=== PATIENT | female | born 1970 | race Caucasian/White ===

== ENCOUNTER 2016-10-20 17:53 | Emergency (ER) | payer MEDICAID ==
[~2016-10-20] VITALS: Ht 157.5 cm; Wt 61.2 kg
[2016-10-20 17:57] VITALS: BP_SYST 147
[2016-10-20] MEDS ORDERED: NACL 0.9% 1,000 ML IV ONE (18:06)
[2016-10-20] MEDS ORDERED: LORazepam 2 MG/ML VIAL (FOR ER USE) IVP ONE (18:15)
[2016-10-20 18:34] LABS: BASOPHILS # (AUTO) 0.1 K/uL (0.0-0.2); BASOPHILS % (AUTO) 0.5 % (0.0-2.0); EOSINOPHILS # (AUTO) 0.2 K/uL (0.0-0.4); EOSINOPHILS % (AUTO) 1.4 % (0.0-4.0); HEMATOCRIT 45.3 % (36-48); HEMOGLOBIN 15.3 g/dL (12.0-16.0); LYMPHOCYTES # (AUTO) 3.2 K/uL (1.0-5.5); LYMPHOCYTES % (AUTO) 28.6 % (20.5-51.5); MEAN CORPUSCULAR HEMOGLOBIN 30 pg (27-31); MEAN CORPUSCULAR HGB CONC 34 % (32-36); MEAN CORPUSCULAR VOLUME 89 fL (79.0-98.0); MONOCYTES # (AUTO) 0.7 K/uL (0.0-1.0); MONOCYTES % (AUTO) 6.4 % (1.7-9.3); NEUTROPHILS # (AUTO) 6.8 K/uL (1.8-7.7); NEUTROPHILS % (AUTO) 63.1 % (40.0-70.0); PLATELET COUNT (AUTO) 440 K/uL (130-430); RED BLOOD CELL COUNT(AUTO) 5.11 MIL/uL (4.2-6.2); RED CELL DISTRIBUTION WIDTH 11.7 % (9.0-15.0)
[2016-10-20 18:46] LABS: CALCIUM 9.9 mg/dL (8.4-11.0); CREATININE 0.88 mg/dL (0.55-1.30); POTASSIUM 3.2 mmol/L (3.5-5.1)
[2016-10-20 18:51] LABS: ALBUMIN 4.7 g/dL (3.4-4.8); TOTAL BILIRUBIN 0.7 mg/dL (0.0-1.0); TOTAL PROTEIN, SERUM 8.8 g/dL (6.4-8.3)
[2016-10-20 18:51] LABS: BILIRUBIN,URINE NEGATIVE (NEGATIVE); BLOOD, URINE NEGATIVE (NEGATIVE); CLARITY/URINE CLOUDY (CLEAR); COLOR,URINE YELLOW (YELLOW); GLUCOSE,URINE 3+ (NEGATIVE); KETONES,URINE 1+ (NEGATIVE); LEUKOCYTE ESTERASE ,URINE TRACE (NEGATIVE); NITRITE, URINE NEGATIVE (NEGATIVE); PH,URINE 7.5 (5.0-8.0); PROTEIN URINE TRACE (NEGATIVE); UROBILINOGEN,URINE 0.2 (0.2-1.0)
[2016-10-20] MEDS ORDERED: KETOROLAC TROMETHAMINE 30 MG VIAL IVP ONE (19:00)
[2016-10-20] MEDS ORDERED: DIPHENHYDRAMINE INJ 50 MG/ML VIAL IVP ONE (19:00)
[2016-10-20 19:12] LABS: RBC,URINE NONE SEEN /HPF (0-3)
[2016-10-20 19:13] LABS: BACTERIA,URINE MODERATE /HPF (None Seen); MUCUS,URINE 1+ /LPF (None Seen)
[2016-10-20 19:50] VITALS: BP_SYST 139
== END 2016-10-20 19:50 | disposition home or self-care (01) ==
LOC: SED 17:53
DX: F45.8 Other somatoform disorders (principal); R10.33 Periumbilical pain; E11.9 Type 2 diabetes mellitus without complications; Z88.5 Allergy status to narcotic agent; Z88.6 Allergy status to analgesic agent; Z90.49 Acquired absence of other specified parts of digestive tract
CPT/HCPCS: 36415; 74176; 80053; 81000; 81025; 83690; 85025; 87086; 96361; 96374; 96375; 99285; J1200; J1885; J2060; J7030

== ENCOUNTER 2017-06-25 18:59 | Emergency (ER) | payer SELFPAY ==
[~2017-06-25] VITALS: Ht 157.5 cm; Wt 59.0 kg
[2017-06-25 19:07] VITALS: BP_SYST 124
--- NOTE | 2017-06-25 19:28 | NUR ---
Patient to ER bed 03 to gown for evaluation. Side rails up. Report given to MARTITA Loja
--- NOTE | 2017-06-25 19:45 | NUR ---
Pt states that she has had flu like symptoms for a couple days including congestion, body aches, malaise, and headache. Will continue to monitor. No distress noted. AAOx4.
--- NOTE | 2017-06-25 20:00 | NUR ---
NAYA Vicente at bedside examining patient.
[2017-06-25 20:08] LABS: STREPTOCOCCUS A SCREEN (RAPID) NEGATIVE (NEGATIVE)
[2017-06-25 20:20] VITALS: BP_SYST 124
--- NOTE | 2017-06-25 20:20 | NUR ---
Patient given written and verbal discharge instructions and verbalizes understanding. ER MD discussed with patient the results and treatment provided. Patient in stable condition. ID arm band removed. Rx of promethezine and motrin given. Patient educated on pain management and to follow up with PMD. Pain Scale 2/10. Opportunity for questions provided and answered. Medication side effect fact sheet provided.
== END 2017-06-25 20:20 | disposition home or self-care (01) ==
LOC: SED 18:59
DX: J10.1 Influenza due to other identified influenza virus with other respiratory manifestations (principal); E11.65 Type 2 diabetes mellitus with hyperglycemia; Z88.5 Allergy status to narcotic agent; Z88.8 Allergy status to other drugs, medicaments and biological substances
CPT/HCPCS: 36415; 71045; 82962; 86403; 86710; 87081; 99285

== ENCOUNTER 2018-03-14 11:23 | Emergency (ER) | payer MEDICAID ==
[~2018-03-14] VITALS: Ht 157.5 cm; Wt 61.2 kg
[2018-03-14 11:25] VITALS: BP_SYST 121
[2018-03-14] MEDS ORDERED: NACL 0.9% 1,000 ML IV ONE (12:16)
[2018-03-14 12:26] LABS: BILIRUBIN,URINE NEGATIVE (NEGATIVE); BLOOD, URINE NEGATIVE (NEGATIVE); CLARITY/URINE CLEAR (CLEAR); COLOR,URINE YELLOW (YELLOW); GLUCOSE,URINE 3+ (NEGATIVE); KETONES,URINE TRACE (NEGATIVE); LEUKOCYTE ESTERASE ,URINE NEGATIVE (NEGATIVE); NITRITE, URINE NEGATIVE (NEGATIVE); PH,URINE 5.5 (5.0-8.0); PROTEIN URINE NEGATIVE (NEGATIVE); UROBILINOGEN,URINE 0.2 (0.2-1.0)
[2018-03-14] MEDS ORDERED: DIPHENHYDRAMINE INJ 50 MG/ML VIAL IVP ONE (12:30)
[2018-03-14] MEDS ORDERED: NS 1000 ML IV.SOLN IV ONE (12:30)
[2018-03-14] MEDS ORDERED: PROMETHAZINE HCL 25 MG/ML AMP IVP ONE (12:30)
[2018-03-14 12:38] LABS: BASOPHILS # (AUTO) 0.1 K/uL (0.0-0.2); BASOPHILS % (AUTO) 0.7 % (0.0-2.0); EOSINOPHILS # (AUTO) 0.3 K/uL (0.0-0.4); HEMATOCRIT 45.6 % (36-48); HEMOGLOBIN 15.1 g/dL (12.0-16.0); LYMPHOCYTES # (AUTO) 2.6 K/uL (1.0-5.5); LYMPHOCYTES % (AUTO) 25.5 % (20.5-51.5); MEAN CORPUSCULAR HEMOGLOBIN 30 pg (27-31); MEAN CORPUSCULAR HGB CONC 33 % (32-36); MEAN CORPUSCULAR VOLUME 91 fL (79.0-98.0); MONOCYTES # (AUTO) 0.6 K/uL (0.0-1.0); MONOCYTES % (AUTO) 5.9 % (1.7-9.3); NEUTROPHILS # (AUTO) 6.5 K/uL (1.8-7.7); NEUTROPHILS % (AUTO) 64.9 % (40.0-70.0); PLATELET COUNT (AUTO) 433 K/uL (130-430); RED BLOOD CELL COUNT(AUTO) 5.01 MIL/uL (4.2-6.2); RED CELL DISTRIBUTION WIDTH 11.6 % (9.0-15.0); WHITE BLOOD COUNT (AUTO) 10.1 K/uL (4.8-10.8)
[2018-03-14 12:54] LABS: BACTERIA,URINE RARE /HPF (None Seen); RBC,URINE 0-3 /HPF (0-3); WBC,URINE NONE SEEN /HPF (0-3)
[2018-03-14 12:57] LABS: PROTHROMBIN TIME 9.6 SECS (9.5-12.5)
[2018-03-14 13:08] LABS: ALBUMIN 3.8 g/dL (3.4-4.8); CREATININE 0.8 mg/dL (0.55-1.30); TOTAL BILIRUBIN 0.4 mg/dL (0.0-1.0)
[2018-03-14 14:20] VITALS: BP_SYST 121
== END 2018-03-14 14:20 | disposition home or self-care (01) ==
LOC: SED 11:23
DX: K57.90 Diverticulosis of intestine, part unspecified, without perforation or abscess without bleeding (principal); M54.5 Low back pain; E11.9 Type 2 diabetes mellitus without complications; F17.200 Nicotine dependence, unspecified, uncomplicated; Z90.49 Acquired absence of other specified parts of digestive tract; Z88.5 Allergy status to narcotic agent; Z88.6 Allergy status to analgesic agent; Z88.8 Allergy status to other drugs, medicaments and biological substances
CPT/HCPCS: 36415; 71045; 74176; 80053; 81000; 81025; 82150; 82962; 83605; 83690; 84484; 85025; 85610; 85730; 87040; 93005; 96374; 96375; 99285; J1200; J2550; J7030

== ENCOUNTER 2018-03-15 16:29 | Emergency (ER) | payer MEDICAID ==
[~2018-03-15] VITALS: Ht 157.5 cm; Wt 61.2 kg
[2018-03-15 16:33] VITALS: BP_SYST 143
--- NOTE | 2018-03-15 16:45 | NUR ---
Patient to ER bed 5 to gown for evaluation. Side rails up.
--- NOTE | 2018-03-15 17:00 | NUR ---
Patient arrived via POV, daughter at bedside. Patient alert and oriented, c/c of lower back pain, feeling like a kidney stone. Patient rates pain 10/10, sharp to lower back. Patient has notable pain response. Patient denies nausea, vomiting, and diarrhea.
--- NOTE | 2018-03-15 17:02 | NUR ---
NAYA Rosales NP at bedside examining patient.
[2018-03-15] MEDS ORDERED: KETOROLAC TROMETHAMINE 60 MG/2 ML VIAL IM ONE (17:15)
[2018-03-15 17:24] LABS: BILIRUBIN,URINE NEGATIVE (NEGATIVE); BLOOD, URINE NEGATIVE (NEGATIVE); CLARITY/URINE CLEAR (CLEAR); COLOR,URINE YELLOW (YELLOW); GLUCOSE,URINE 3+ (NEGATIVE); KETONES,URINE NEGATIVE (NEGATIVE); LEUKOCYTE ESTERASE ,URINE NEGATIVE (NEGATIVE); NITRITE, URINE NEGATIVE (NEGATIVE); PROTEIN URINE NEGATIVE (NEGATIVE); UROBILINOGEN,URINE 0.2 (0.2-1.0)
[2018-03-15 17:28] LABS: BACTERIA,URINE FEW /HPF (None Seen); RBC,URINE 0-3 /HPF (0-3); WBC,URINE 0-3 /HPF (0-3); YEAST,URINE Few /HPF (None Seen)
--- NOTE | 2018-03-15 17:35 | NUR ---
US at bedside for exam.
[2018-03-15 17:39] LABS: BASOPHILS # (AUTO) 0.1 K/uL (0.0-0.2); BASOPHILS % (AUTO) 0.6 % (0.0-2.0); EOSINOPHILS # (AUTO) 0.4 K/uL (0.0-0.4); EOSINOPHILS % (AUTO) 4.1 % (0.0-4.0); HEMATOCRIT 43.1 % (36-48); HEMOGLOBIN 14.6 g/dL (12.0-16.0); LYMPHOCYTES # (AUTO) 3.6 K/uL (1.0-5.5); LYMPHOCYTES % (AUTO) 37.4 % (20.5-51.5); MEAN CORPUSCULAR HEMOGLOBIN 30 pg (27-31); MEAN CORPUSCULAR HGB CONC 34 % (32-36); MEAN CORPUSCULAR VOLUME 90 fL (79.0-98.0); MONOCYTES # (AUTO) 0.6 K/uL (0.0-1.0); NEUTROPHILS % (AUTO) 51.9 % (40.0-70.0); PLATELET COUNT (AUTO) 396 K/uL (130-430); RED BLOOD CELL COUNT(AUTO) 4.81 MIL/uL (4.2-6.2); RED CELL DISTRIBUTION WIDTH 11.6 % (9.0-15.0); WHITE BLOOD COUNT (AUTO) 9.7 K/uL (4.8-10.8)
[2018-03-15 17:50] LABS: ALBUMIN 3.4 g/dL (3.4-4.8); CALCIUM 8.6 mg/dL (8.4-11.0); CREATININE 0.74 mg/dL (0.55-1.30); POTASSIUM 3.7 mmol/L (3.5-5.1); TOTAL BILIRUBIN 0.3 mg/dL (0.0-1.0)
[2018-03-15] MEDS ORDERED: fentaNYL CITRATE/PF 100 MCG/2 ML AMP IM ONE (18:15)
--- NOTE | 2018-03-15 19:14 | NUR ---
Patient given written and verbal discharge instructions and verbalizes understanding. ER MD discussed with patient the results and treatment provided. Patient in stable condition. ID arm band removed. Rx of Mobile, Flexeril given. Patient educated on pain management and to follow up with PMD. Pain Scale 2/10. Opportunity for questions provided and answered.
[2018-03-15 19:21] VITALS: BP_SYST 121
== END 2018-03-15 19:21 | disposition home or self-care (01) ==
LOC: SED 16:29
DX: R10.9 Unspecified abdominal pain (principal); E11.9 Type 2 diabetes mellitus without complications; R03.0 Elevated blood-pressure reading, without diagnosis of hypertension; Z90.49 Acquired absence of other specified parts of digestive tract; Z88.1 Allergy status to other antibiotic agents; Z88.5 Allergy status to narcotic agent; Z88.6 Allergy status to analgesic agent
CPT/HCPCS: 36415; 76700; 80053; 81000; 81025; 83690; 85025; 96372; 99285; J1885; J3010

== ENCOUNTER 2018-04-10 11:12 | Emergency (ER) | payer MEDICAID ==
[~2018-04-10] VITALS: Ht 157.5 cm; Wt 63.5 kg
[2018-04-10] MEDS ORDERED: NACL 0.9% 1,000 ML IV ONE (11:15)
[2018-04-10 11:22] VITALS: BP_SYST 135
--- NOTE | 2018-04-10 11:25 | NUR ---
Note maddison in ED - 04/10/18 at 1313 by [email or web address] patient is AOx4 arriving from home with generalized ache x 3 days. she has a medical hx of DM2 that she doesn't treat with anything. no other complaints or injury at this time.
--- NOTE | 2018-04-10 11:26 | NUR ---
Pt placed in bed 4
--- NOTE | 2018-04-10 11:27 | NUR ---
patient is AOx4 arriving from home with generalized ache x 3 days. she has a medical hx of DM2 that she doesn't treat with anything. no other complaints or injury at this time. denies drugs, etoh or smoking at this time.
--- NOTE | 2018-04-10 11:31 | NUR ---
ER at bedside examining patient.
[2018-04-10 11:45] LABS: EOSINOPHILS # (AUTO) 0.4 K/uL (0.0-0.4); EOSINOPHILS % (AUTO) 3.1 % (0.0-4.0); HEMATOCRIT 42.3 % (36-48); HEMOGLOBIN 14.7 g/dL (12.0-16.0); LYMPHOCYTES # (AUTO) 1.6 K/uL (1.0-5.5); MEAN CORPUSCULAR HEMOGLOBIN 31 pg (27-31); MEAN CORPUSCULAR HGB CONC 35 % (32-36); MEAN CORPUSCULAR VOLUME 88 fL (79.0-98.0); MONOCYTES # (AUTO) 0.5 K/uL (0.0-1.0); MONOCYTES % (AUTO) 4.4 % (1.7-9.3); PLATELET COUNT (AUTO) 418 K/uL (130-430); RED BLOOD CELL COUNT(AUTO) 4.83 MIL/uL (4.2-6.2); RED CELL DISTRIBUTION WIDTH 11.8 % (9.0-15.0); WHITE BLOOD COUNT (AUTO) 11.8 K/uL (4.8-10.8)
[2018-04-10 11:46] LABS: BASOPHILS % (AUTO) 0.3 % (0.0-2.0); NEUTROPHILS % (AUTO) 78.2 % (40.0-70.0)
[2018-04-10 11:47] LABS: NEUTROPHILS # (AUTO) 9.3 K/uL (1.8-7.7)
[2018-04-10 12:00] LABS: CALCIUM 8.8 mg/dL (8.4-11.0); CREATININE 0.59 mg/dL (0.55-1.30); INR 0.9 (0.8-1.2); POTASSIUM 3.9 mmol/L (3.5-5.1); PROTHROMBIN TIME 9.7 SECS (9.5-12.5)
[2018-04-10] MEDS ORDERED: ATROPINE SULFATE 0.4 MG/ML VIAL IVP ONE (12:00)
[2018-04-10 12:05] LABS: ALBUMIN 3.7 g/dL (3.4-4.8); TOTAL BILIRUBIN 0.5 mg/dL (0.0-1.0)
--- NOTE | 2018-04-10 12:30 | NUR ---
patient resting with IV fluids running
[2018-04-10 12:44] LABS: BILIRUBIN,URINE NEGATIVE (NEGATIVE); CLARITY/URINE HAZY (CLEAR); COLOR,URINE YELLOW (YELLOW); GLUCOSE,URINE 3+ (NEGATIVE); KETONES,URINE 1+ (NEGATIVE); LEUKOCYTE ESTERASE ,URINE NEGATIVE (NEGATIVE); NITRITE, URINE NEGATIVE (NEGATIVE); PROTEIN URINE NEGATIVE (NEGATIVE); UROBILINOGEN,URINE 0.2 (0.2-1.0)
[2018-04-10 12:52] LABS: BLOOD, URINE TRACE (NEGATIVE)
[2018-04-10 12:55] LABS: BARBITURATE, URINE NEGATIVE (NEG <=200); BENZODIAZEPINE, URINE NEGATIVE (NEG <=150); CANNABINOID, URINE NEGATIVE (NEG <=50); COCAINE, URINE NEGATIVE (NEG <=150); METHAMPHETAMINES SCREEN,URINE NEGATIVE (NEG <=500); OPIATE, URINE NEGATIVE (NEG <=100); PHENCYCLIDINE SCREEN,URINE NEGATIVE (NEG <=25); UR TRICYCLIC ANTIDEPRESSANTS NEGATIVE (NEG <=300); URINE AMPHETAMINE NEGATIVE (NEG <=500); URINE METHADONE NEGATIVE (NEG <=200); URINE OXYCODONE SCREEN NEGATIVE (NEG <=100); URINE PROPOXYPHENE SCREEN NEGATIVE (NEG <=300)
--- NOTE | 2018-04-10 13:14 | NUR ---
IV fluids complete
[2018-04-10 13:35] LABS: BACTERIA,URINE MODERATE /HPF (None Seen)
[2018-04-10] MEDS ORDERED: methylPREDNISolone SOD SUCC/PF 62.5 MG/ML VIAL IVP ONE (13:45)
[2018-04-10] MEDS ORDERED: IPRATROPIUM BROM 0.5 MG/2.5 ML VIAL.NEB (ATROVENT) IH ONE (13:45)
[2018-04-10] MEDS ORDERED: ALBUTEROL SULFATE 0.083% 2.5 MG/3 ML VIAL.NEB IH ONE (13:45)
[2018-04-10 14:00] VITALS: BP_SYST 135
== END 2018-04-10 14:00 | disposition home or self-care (01) ==
LOC: SED 11:12
DX: J40 Bronchitis, not specified as acute or chronic (principal); R53.1 Weakness; M79.10 Myalgia, unspecified site; E11.9 Type 2 diabetes mellitus without complications; R03.0 Elevated blood-pressure reading, without diagnosis of hypertension; Z88.5 Allergy status to narcotic agent; Z88.6 Allergy status to analgesic agent
CPT/HCPCS: 36415; 71045; 80053; 80307; 81000; 83690; 85025; 85610; 85730; 86710; 87086; 94640; 99284; J2930; J7030; J7613

== ENCOUNTER 2018-05-12 21:59 | Emergency (ER) | payer SELFPAY ==
[~2018-05-12] VITALS: Ht 157.5 cm; Wt 61.2 kg
[2018-05-12 22:00] VITALS: BP_SYST 141
--- NOTE | 2018-05-12 22:10 | NUR ---
Patient triaged and placed in waiting room. VSS and patient appears in no acute distress at this time. Accompanied by friend, awaiting available bed, and MD notified of need for MSE. Patient provided with specimen cup for urine sample while waiting for room assignment.
--- NOTE | 2018-05-12 22:25 | NUR ---
Patient decided that she no longer wishes to be seen in ER. Patient left ER in no acute distress, ambulating without difficulty with slow, steady gait.
== END 2018-05-12 22:25 | disposition left against medical advice (07) ==
LOC: SED 21:59
DX: R51 Headache (principal); R11.0 Nausea; Z53.21 Procedure and treatment not carried out due to patient leaving prior to being seen by health care provider

== ENCOUNTER 2023-02-22 12:21 | Emergency (ER) | payer BC ==
[~2023-02-22] VITALS: Ht 157.5 cm; Wt 65.8 kg
[2023-02-22 12:50] VITALS: BP_SYST 120; PULSE 69; RESP 18; TEMP 96.8; O2SAT 100
[2023-02-22 17:00] VITALS: BP_SYST 123; PULSE 74; RESP 15; TEMP 97.5; O2SAT 100
== END 2023-02-22 17:01 | disposition home or self-care (01) ==
LOC: SED 12:21
DX: S50.01XA Contusion of right elbow, initial encounter (principal); E11.9 Type 2 diabetes mellitus without complications; Z88.5 Allergy status to narcotic agent; Z88.6 Allergy status to analgesic agent; Z79.899 Other long term (current) drug therapy; W19.XXXA Unspecified fall, initial encounter; Y93.89 Activity, other specified; Y92.89 Other specified places as the place of occurrence of the external cause; Y99.8 Other external cause status
CPT/HCPCS: 73060-TC; 73090; 99284